=== PATIENT | male | born 1935 | race African-American/Black ===

== ENCOUNTER 2017-06-05 15:21 | Inpatient (IN) | payer OTHER ==
[~2017-06-05] VITALS: Ht 188 cm; Wt 92.7 kg
[~2017-06-05 15:21] MED LIST: CAR3125T PO; DABI75CA3 PO; FUR20T PO
[2017-06-05] MEDS ORDERED: SODIUM CHLORIDE 0.9% 1,000 ML IV ONE (15:42)
[2017-06-05 16:08] LABS: Basophils # (auto) 0 uL; Basophils % (auto) 0.2 % (0.0-2.0); Eosinophils # (auto) 0 uL; Eosinophils % (auto) 0.2 % (0.0-7.0); Hematocrit 41.4 % (41.0-53.0); Hemoglobin 13.8 g/dL (13.5-17.5); Lymphocytes # (auto) 0.3 uL; Lymphocytes % (auto) 7.4 % (10.0-50.0); Mean Corpuscular Hgb Conc. 33.3 g/dL (32.0-36.0); Mean Corpuscular Volume 87.1 fL (80.0-100.0); Monocytes # (auto) 0.3 uL; Monocytes % (auto) 5.3 % (0.0-12.0); Neutrophils # (auto) 4.1 uL; Neutrophils % (auto) 86.9 % (37.0-80.0); Nucleated Red Blood Cells % 0.4 %; Platelet Count (auto) 128 10^3/uL (140-450); Red Blood Cells 4.75 10^6/uL (4.5-5.90); Red Cell Distribution Width 14.1 % (11.8-14.3); White Blood Cell 4.7 10^3/uL (4.4-10.8)
[2017-06-05 16:26] LABS: Potassium 4.2 mmol/L (3.5-5.1)
[2017-06-05 16:29] LABS: BUN/Creatinine Ratio 16.7; Calcium 8.5 mg/dL (8.5-10.1)
[2017-06-05 16:30] LABS: Albumin 3.4 g/dL (3.4-5.0); Bilirubin, Total 1.7 mg/dL (0.2-1.0); Total Protein 7.9 g/dL (6.4-8.2)
[2017-06-05] MEDS ORDERED: ACETAMINOPHEN 500 MG TAB PO PRN (19:00)
[2017-06-05] MEDS ORDERED: LACTULOSE 20Gm/30ML SOLN PO PRN (19:00)
[2017-06-05] MEDS ORDERED: NITROGLYCERIN 0.4 MG SL TAB SL PRN (19:00)
[2017-06-05] MEDS ORDERED: MORPHINE SULFATE 4 MG/ML SYR/VIAL IV PRN (19:00)
[2017-06-05] MEDS ORDERED: FUROSEMIDE 20 MG/2 ML VIAL IV ONE (19:15)
[2017-06-05] MEDS ORDERED: PANTOPRAZOLE 40 MG/10 ML VIAL IV ONE (19:15)
[2017-06-05] MEDS: SODIUM CHLORIDE 0.9% 1,000 ML IV SCH (20:00)
[2017-06-05] MEDS: DABIGATRAN 75 MG CAP PO SCH ×2 (21:22→21:30)
[2017-06-05] MEDS ORDERED: CARVEDILOL 3.125 MG TAB PO SCH (22:00)
[2017-06-06] VITALS (7 sets, daily range): BP systolic 124–154; BP diastolic 68–85
[2017-06-06 01:42] LABS: Urine Bacteria NONE SEEN /hpf (None Seen); Urine Blood 1+ /uL (Negative); Urine Hyaline Cast FEW /lpf (0 - 2); Urine Specific Gravity 1.009 (1.001-1.035); Urine WBC 1 /hpf (0 - 3)
[2017-06-06] MEDS: SODIUM CHLORIDE 0.9% 1,000 ML IV SCH (02:59)
[2017-06-06 05:46] LABS: Basophils # (auto) 0 uL; Basophils % (auto) 0.4 % (0.0-2.0); Eosinophils # (auto) 0.1 uL; Eosinophils % (auto) 1.3 % (0.0-7.0); Hematocrit 36.4 % (41.0-53.0); Hemoglobin 12.3 g/dL (13.5-17.5); Lymphocytes # (auto) 0.6 uL; Lymphocytes % (auto) 12.7 % (10.0-50.0); Mean Corpuscular Hemoglobin 29.4 pg (28.0-32.0); Mean Corpuscular Hgb Conc. 33.7 g/dL (32.0-36.0); Mean Corpuscular Volume 87.3 fL (80.0-100.0); Monocytes # (auto) 0.4 uL; Monocytes % (auto) 8.5 % (0.0-12.0); Neutrophils # (auto) 3.6 uL; Neutrophils % (auto) 77.1 % (37.0-80.0); Nucleated Red Blood Cells % 0.1 %; Platelet Count (auto) 110 10^3/uL (140-450); Red Blood Cells 4.17 10^6/uL (4.5-5.90); Red Cell Distribution Width 14.1 % (11.8-14.3); White Blood Cell 4.7 10^3/uL (4.4-10.8)
[2017-06-06] MEDS ORDERED: FUROSEMIDE 20 MG/2 ML VIAL IV SCH (06:00)
[2017-06-06 06:19] LABS: Albumin 2.7 g/dL (3.4-5.0); BUN/Creatinine Ratio 17.7; Bilirubin, Total 1.6 mg/dL (0.2-1.0); Calcium 7.9 mg/dL (8.5-10.1); Total Protein 6.7 g/dL (6.4-8.2)
[2017-06-06] MEDS ORDERED: PANTOPRAZOLE 40 MG/10 ML VIAL IV SCH (10:00)
[2017-06-06] MEDS ORDERED: CARVEDILOL 3.125 MG TAB PO ONE (12:00)
[2017-06-06] MEDS: DABIGATRAN 75 MG CAP PO SCH (20:53)
[2017-06-06] MEDS: CARVEDILOL 3.125 MG TAB PO SCH (20:58)
[2017-06-07 05:13] VITALS: BP 121/63
[2017-06-07 07:02] LABS: BUN/Creatinine Ratio 16.8; Calcium 7.8 mg/dL (8.5-10.1); Potassium 3.7 mmol/L (3.5-5.1)
[2017-06-07 08:00] VITALS: BP 130/71
[2017-06-07 09:00] VITALS: BP 130/48
[2017-06-07] MEDS: DABIGATRAN 75 MG CAP PO SCH ×2 (10:00→21:43)
[2017-06-07] MEDS: CARVEDILOL 3.125 MG TAB PO SCH ×2 (10:25→21:44)
[2017-06-07 12:39] LABS: % Iron Saturation 15.1 % (20-55)
[2017-06-07 13:38] VITALS: BP 132/67
[2017-06-07 17:29] VITALS: BP 134/69
[2017-06-07] MEDS: GABAPENTIN 100 MG CAP PO SCH (21:43)
[2017-06-07 22:00] VITALS: BP 151/80
[2017-06-08 05:00] VITALS: BP 146/71
[2017-06-08] MEDS: GABAPENTIN 100 MG CAP PO SCH ×3 (05:21→21:44)
[2017-06-08 05:38] LABS: Basophils # (auto) 0 uL; Basophils % (auto) 0.2 % (0.0-2.0); Eosinophils # (auto) 0.1 uL; Eosinophils % (auto) 1.8 % (0.0-7.0); Hematocrit 35.9 % (41.0-53.0); Hemoglobin 12.2 g/dL (13.5-17.5); Lymphocytes # (auto) 0.9 uL; Mean Corpuscular Hemoglobin 29.4 pg (28.0-32.0); Mean Corpuscular Hgb Conc. 34.1 g/dL (32.0-36.0); Mean Corpuscular Volume 86.1 fL (80.0-100.0); Monocytes # (auto) 0.5 uL; Neutrophils # (auto) 3.7 uL; Nucleated Red Blood Cells % 0.1 %; Platelet Count (auto) 115 10^3/uL (140-450); Red Blood Cells 4.17 10^6/uL (4.5-5.90); Red Cell Distribution Width 13.7 % (11.8-14.3); White Blood Cell 5.2 10^3/uL (4.4-10.8)
[2017-06-08 06:13] LABS: Albumin 2.6 g/dL (3.4-5.0); BUN/Creatinine Ratio 16.2; Bilirubin, Total 0.8 mg/dL (0.2-1.0); Calcium 7.8 mg/dL (8.5-10.1); Magnesium 2.3 mg/dL (1.6-2.6); Phosphorus 2.5 mg/dL (2.5-4.90); Potassium 3.7 mmol/L (3.5-5.1); Total Protein 6.5 g/dL (6.4-8.2)
[2017-06-08 08:00] VITALS: BP 144/84
[2017-06-08 08:32] VITALS: BP 144/84
[2017-06-08] MEDS ORDERED: MORPHINE SULFATE 10 MG/ML INJ 1ML SDV IV PRN (09:30)
[2017-06-08] MEDS: DABIGATRAN 75 MG CAP PO SCH ×2 (10:50→21:43)
[2017-06-08] MEDS: CARVEDILOL 3.125 MG TAB PO SCH ×2 (10:50→21:44)
[2017-06-08 12:34] VITALS: BP 139/86
[2017-06-08 17:04] VITALS: BP 149/73
[2017-06-08 22:00] VITALS: BP 149/78
[2017-06-09 05:00] VITALS: BP 131/54
[2017-06-09] MEDS: GABAPENTIN 100 MG CAP PO SCH ×2 (05:09→14:00)
[2017-06-09 05:50] LABS: Basophils # (auto) 0 uL; Basophils % (auto) 0.2 % (0.0-2.0); Eosinophils # (auto) 0.1 uL; Eosinophils % (auto) 1.9 % (0.0-7.0); Hematocrit 35.7 % (41.0-53.0); Lymphocytes # (auto) 0.9 uL; Lymphocytes % (auto) 16.3 % (10.0-50.0); Mean Corpuscular Hgb Conc. 33.6 g/dL (32.0-36.0); Mean Corpuscular Volume 86.3 fL (80.0-100.0); Monocytes # (auto) 0.5 uL; Monocytes % (auto) 8.3 % (0.0-12.0); Neutrophils # (auto) 4.1 uL; Neutrophils % (auto) 73.3 % (37.0-80.0); Nucleated Red Blood Cells % 0.1 %; Platelet Count (auto) 127 10^3/uL (140-450); Red Blood Cells 4.14 10^6/uL (4.5-5.90); Red Cell Distribution Width 13.8 % (11.8-14.3); White Blood Cell 5.7 10^3/uL (4.4-10.8)
[2017-06-09 06:17] LABS: Albumin 2.6 g/dL (3.4-5.0); Calcium 8.1 mg/dL (8.5-10.1); Potassium 3.9 mmol/L (3.5-5.1)
[2017-06-09 06:20] LABS: BUN/Creatinine Ratio 15.3; Magnesium 2.1 mg/dL (1.6-2.6)
[2017-06-09 06:23] LABS: Bilirubin, Total 0.9 mg/dL (0.2-1.0); Phosphorus 2.6 mg/dL (2.5-4.90); Total Protein 6.4 g/dL (6.4-8.2)
[2017-06-09 08:00] VITALS: BP 138/69
[2017-06-09 08:27] VITALS: BP 138/69
[2017-06-09] MEDS: DABIGATRAN 75 MG CAP PO SCH (10:00)
[2017-06-09] MEDS: CARVEDILOL 3.125 MG TAB PO SCH (10:36)
[2017-06-09 12:30] VITALS: BP 116/67
[2017-06-09 12:52] VITALS: BP 111/67
== END 2017-06-09 16:14 | disposition home or self-care (01) | DRG 682 ==
LOC: EDBD 15:21 → ER 15:27 → TELE 15:28 → TELE-CENTR 22:48
PROVIDERS: ADMIT Family Medicine; ATTEND Internal Medicine
DX: N17.9 Acute kidney failure, unspecified (principal); G93.41 Metabolic encephalopathy; E44.0 Moderate protein-calorie malnutrition; E11.22 Type 2 diabetes mellitus with diabetic chronic kidney disease; D68.59 Other primary thrombophilia; E11.42 Type 2 diabetes mellitus with diabetic polyneuropathy; G93.89 Other specified disorders of brain; I48.91 Unspecified atrial fibrillation; I13.0 Hypertensive heart and chronic kidney disease with heart failure and stage 1 through stage 4 chronic kidney disease, or unspecified chronic kidney disease; I50.32 Chronic diastolic (congestive) heart failure; R55 Syncope and collapse; N18.3 Chronic kidney disease, stage 3 (moderate); D64.9 Anemia, unspecified; E66.9 Obesity, unspecified; Z82.49 Family history of ischemic heart disease and other diseases of the circulatory system; Z83.3 Family history of diabetes mellitus; Z79.899 Other long term (current) drug therapy
CPT/HCPCS: 36415; 70450; 71010; 80048; 80053; 80061; 81001; 82270; 82962; 83540; 83550; 83735; 83880; 84100; 84484; 85025; 87040; 87081; 87086; 87400; 87493; 93005; 94761; 95819; 96361; 96374; 96375; 97163; C9113

== ENCOUNTER 2019-04-09 08:33 | Inpatient (IN) | payer OTHER ==
[~2019-04-09] VITALS: Ht 188 cm; Wt 85.3 kg
[~2019-04-09 08:33] MED LIST changes: -DABI75CA3 PO; +DABI75CA5 PO
[2019-04-09] MEDS ORDERED: SODIUM CHLORIDE 0.9% 500 ML IV ONE (08:49)
[2019-04-09 09:38] LABS: Basophils # (auto) 0 uL; Basophils % (auto) 0.3 % (0.0-2.0); Eosinophils # (auto) 0.1 uL; Eosinophils % (auto) 0.7 % (0.0-7.0); Hematocrit 35.9 % (41.0-53.0); Hemoglobin 11.8 g/dL (13.5-17.5); Lymphocytes # (auto) 0.6 uL; Lymphocytes % (auto) 8.1 % (10.0-50.0); Mean Corpuscular Hemoglobin 29.8 pg (28.0-32.0); Mean Corpuscular Volume 90.3 fL (80.0-100.0); Monocytes # (auto) 0.4 uL; Monocytes % (auto) 5.2 % (0.0-12.0); Neutrophils % (auto) 85.7 % (37.0-80.0); Nucleated Red Blood Cells % 0.1 %; Platelet Count (auto) 189 10^3/uL (140-450); Red Blood Cells 3.97 10^6/uL (4.5-5.90); White Blood Cell 7.1 10^3/uL (4.4-10.8)
[2019-04-09 09:52] LABS: Albumin 2.9 g/dL (3.4-5.0); Calcium 8.2 mg/dL (8.5-10.1); Magnesium 1.9 mg/dL (1.6-2.6); Potassium 4.1 mmol/L (3.5-5.1)
[2019-04-09 09:54] LABS: BUN/Creatinine Ratio 12.5
[2019-04-09 09:59] LABS: Bilirubin, Total 1.6 mg/dL (0.2-1.0); Total Protein 7.1 g/dL (6.4-8.2)
[2019-04-09] MEDS ORDERED: ONDANSETRON HCL 4 MG/2 ML VIAL IV PRN (10:45)
[2019-04-09] MEDS ORDERED: FUROSEMIDE 20 MG/2 ML VIAL IV ONE (10:45)
[2019-04-09] MEDS ORDERED: HYDROcodone-ACET 5/325MG TAB PO PRN (10:45)
[2019-04-09] MEDS ORDERED: NITROGLYCERIN 0.4 MG SL TAB SL PRN (10:45)
[2019-04-09] MEDS ORDERED: MORPHINE SULF INJ 2 MG/ML SYRINGE 1ML IV PRN ×2 (10:45)
[2019-04-09] MEDS ORDERED: ACETAMINOPHEN 500 MG TAB PO PRN (10:45)
[2019-04-09] MEDS ORDERED: ASPirin-EC 81 mg tab PO ONE (11:00)
[2019-04-09] MEDS ORDERED: CARVEDILOL 3.125 MG TAB PO ONE (11:00)
[2019-04-09] MEDS ORDERED: LISINOPRIL 10 MG TAB PO ONE (11:00)
[2019-04-09] MEDS ORDERED: FAMOTIDINE 20 MG TAB PO ONE (11:00)
[2019-04-09 11:18] LABS: Cholesterol 148 mg/dL (< 200); Triglycerides 89 mg/dL (< 150)
[2019-04-09 11:21] LABS: HDL Cholesterol 34 mg/dL (40-59); LDL Cholesterol 102 mg/dL (< 100)
--- NOTE | 2019-04-09 12:15 | NUR ---
PATIENT ARRIVED TO UNIT PATIENT ALERT AND ORIENTED X4 DAUGHTER AT BEDSIDE. PATIENT ORIENTED TO UNIT, STAFF, POC, CALL LIGHT AND VISITING HOURS. PATIENT VERBALIZED UNDERSTANDING. PATIENT DENIES ANY CHEST PAIN, OR SOB AT THIS TIME. BED IN LOWEST LOCKED POSITION CALL LIGHT WITHIN REACH. WILL CONTINUE TO MONITOR
[2019-04-09 12:29] VITALS: BP 132/76
--- NOTE | 2019-04-09 13:09 | NUR ---
CRITICAL IMAGING DETECTED KAVITHA FROM IMAGING CALLED PATIENT HAS POSITIVE DVT SEE REPORT. HOSPITALIST PAGED
--- NOTE | 2019-04-09 14:40 | NUR ---
NAUN CALLED BACK. GAVE TELEPHONE ORDERS. WILL CARRY OUT ORDERS
[2019-04-09 14:54] VITALS: BP 132/76
--- NOTE | 2019-04-09 15:22 | NUR ---
PATIENT BED NOT WORKING PROPERLY TO OBTAIN ACCURATE DAVE.
[2019-04-09 16:30] LABS: INR 1.05 (0.9-1.15)
[2019-04-09 16:53] VITALS: BP 147/78
--- NOTE | 2019-04-09 17:05 | NUR ---
BED FIXED OBTAINED WEIGHT AND PHARMACY NOTIFIED FOR COUMADIN AND LOVENOX DOSE
[2019-04-09] MEDS ORDERED: GABA100C9 PO (19:11)
[2019-04-09] MEDS ORDERED: WARFARIN SODIUM 2.5 MG TAB PO ONE (19:15)
--- NOTE | 2019-04-09 19:27 | NUR ---
Opening Shift Note Assumed care of patient, awake and alert x4. No S/S of distress/SOB or pain. Instructed on POC and to call for assist PRN. All questions and concerns answered, will continue to monitor for changes Q1hr and PRN.
[2019-04-09 22:00] VITALS: BP 148/82
[2019-04-09] MEDS ORDERED: ENOXAPARIN SOD 80 MG/0.8ML SYRINGE SC SCH (22:00)
[2019-04-09] MEDS: ATORVASTATIN 20 MG TAB PO SCH (22:38)
[2019-04-09] MEDS: CARVEDILOL 3.125 MG TAB PO SCH (22:38)
[2019-04-09] MEDS: ENOXAPARIN SOD 80 MG/0.8ML SYRINGE SC SCH (22:39)
[2019-04-10] VITALS (7 sets, daily range): BP systolic 138–151; BP diastolic 70–84
[2019-04-10 06:47] LABS: Basophils # (auto) 0 uL; Basophils % (auto) 0.5 % (0.0-2.0); Eosinophils # (auto) 0.1 uL; Eosinophils % (auto) 1.9 % (0.0-7.0); Hematocrit 30.6 % (41.0-53.0); Hemoglobin 10.2 g/dL (13.5-17.5); Lymphocytes # (auto) 0.7 uL; Lymphocytes % (auto) 16.5 % (10.0-50.0); Mean Corpuscular Hemoglobin 29.6 pg (28.0-32.0); Mean Corpuscular Hgb Conc. 33.4 g/dL (32.0-36.0); Mean Corpuscular Volume 88.5 fL (80.0-100.0); Monocytes # (auto) 0.3 uL; Monocytes % (auto) 7.5 % (0.0-12.0); Neutrophils # (auto) 3.3 uL; Neutrophils % (auto) 73.6 % (37.0-80.0); Nucleated Red Blood Cells % 0.2 %; Platelet Count (auto) 159 10^3/uL (140-450); Red Blood Cells 3.46 10^6/uL (4.5-5.90); Red Cell Distribution Width 13.8 % (11.8-14.3); White Blood Cell 4.4 10^3/uL (4.4-10.8)
[2019-04-10 07:03] LABS: INR 1.08 (0.9-1.15); Partial Thromboplastin Time 38.2 sec (23.64-32.05)
[2019-04-10 07:08] LABS: BUN/Creatinine Ratio 13.7; Calcium 7.9 mg/dL (8.5-10.1); Phosphorus 3.4 mg/dL (2.5-4.90); Potassium 3.8 mmol/L (3.5-5.1)
--- NOTE | 2019-04-10 07:30 | NUR ---
Opening Shift Note Assumed care of patient, awake and alert. No S/S of distress/SOB or pain. Instructed on POC and to call for assist PRN, will continue to monitor for changes Q1hr and PRN. Bed locked in lowest position with two side rails up and call light in reach.
--- NOTE | 2019-04-10 09:30 | NUR ---
LEFT LEG DRESSING CHANGED. PATIENT TOLERATED WELL..
[2019-04-10] MEDS: ENOXAPARIN SOD 80 MG/0.8ML SYRINGE SC SCH ×2 (09:37→22:00)
[2019-04-10] MEDS: LISINOPRIL 10 MG TAB PO SCH (09:38)
[2019-04-10] MEDS: FAMOTIDINE 20 MG TAB PO SCH (09:38)
[2019-04-10] MEDS: ASPirin-EC 81 mg tab PO SCH (09:38)
[2019-04-10] MEDS: CARVEDILOL 3.125 MG TAB PO SCH ×2 (09:39→22:00)
--- NOTE | 2019-04-10 12:28 | NUR ---
DR ZOE ROMO. PATIENT TO SPEAK WITH DANIEL RICE REGARDING FINDING A PRIMARY CARE PHYSICIAN.
--- NOTE | 2019-04-10 14:50 | NUR ---
WOUND CARE NOTE: Wound care consult received from nursing. Patient is a 84yo male admitted for acute diastolic heart failure. Patient with with history of hypertension, diabetes, peripheral neuropathy, afib, and chronic kidney disease. Patient is alert and denies pain. Last Brcue score is 14. Reviewed photos and discussed with bedside RNTori. Patient with open draining blisters to left leg. Foam dressing in place in minimal serous drainage. Patient also noted to have MASD to sacrum, scrotum and enrique area. RECOMMENDATIONS: Dietary Consult; Turn q2hrs; Nursing to cleanse open blisters with NS/wound cleanser, pat dry, cover with OPTIFOAM GENTLE, change every other day and PRN; Nursing to cleanse enrique area with mild soap and water, pat dry, apply ZGUARD BID/PRN soiling, may cover sacrum with sacral foam to prevent friction/shear injury; wound care team to follow. Addendum: 04/10/19 at 1745 by YAZMIN OROSCO RN Amended: Links added.
[2019-04-10] MEDS ORDERED: WARFARIN SODIUM 2.5 MG TAB PO ONE (17:00)
[2019-04-10] MEDS ORDERED: ERGOCALCIFEROL 50,000 UNIT(1.25MG) CAP PO SCH (17:15)
--- NOTE | 2019-04-10 19:30 | NUR ---
Opening Shift Note Received report from Tori SHAIKH. Assumed care of patient, awake and alert. No S/S of distress/SOB or pain. Instructed on POC and to call for assist PRN. Fall precaution measures in place, will continue to monitor for changes Q1hr and PRN.
[2019-04-10] MEDS: ATORVASTATIN 20 MG TAB PO SCH (21:59)
--- NOTE | 2019-04-11 05:00 | NUR ---
Wound care done. Applied Optifoam gentle dressing to L lateral leg, sacrum and R hip area.
[2019-04-11 05:30] LABS: Basophils # (auto) 0 uL; Basophils % (auto) 0.3 % (0.0-2.0); Eosinophils # (auto) 0.1 uL; Hematocrit 29.4 % (41.0-53.0); Hemoglobin 9.9 g/dL (13.5-17.5); Lymphocytes # (auto) 0.7 uL; Lymphocytes % (auto) 17.5 % (10.0-50.0); Mean Corpuscular Hemoglobin 29.8 pg (28.0-32.0); Mean Corpuscular Hgb Conc. 33.7 g/dL (32.0-36.0); Mean Corpuscular Volume 88.5 fL (80.0-100.0); Monocytes # (auto) 0.3 uL; Monocytes % (auto) 7.1 % (0.0-12.0); Neutrophils # (auto) 2.9 uL; Neutrophils % (auto) 73.1 % (37.0-80.0); Nucleated Red Blood Cells % 0.1 %; Platelet Count (auto) 149 10^3/uL (140-450); Red Blood Cells 3.32 10^6/uL (4.5-5.90); Red Cell Distribution Width 13.5 % (11.8-14.3); White Blood Cell 3.9 10^3/uL (4.4-10.8)
[2019-04-11 05:43] LABS: INR 1.32 (0.9-1.15); Partial Thromboplastin Time 44.5 sec (23.64-32.05)
[2019-04-11 05:49] VITALS: BP 159/82
[2019-04-11 05:50] LABS: BUN/Creatinine Ratio 12.6; Calcium 7.8 mg/dL (8.5-10.1); Potassium 3.8 mmol/L (3.5-5.1)
[2019-04-11] MEDS: hydrALAZINE HCL 20 MG/ML VL IV PRN ×2 (06:05→18:01)
[2019-04-11 06:11] LABS: Phosphorus 2.8 mg/dL (2.5-4.90); Uric Acid 6.6 mg/dL (3.5-7.2)
--- NOTE | 2019-04-11 06:56 | NUR ---
Drained 700 cc from NGT. Patient stable the whole night. Endorsed care to Crystal SHAIKH. Addendum: 04/11/19 at 0658 by Gisell Gonzalez RN Wrong entry.
--- NOTE | 2019-04-11 07:50 | NUR ---
Patient in bed, awake, oriented x4, slightly hard of hearing, wounds noted on bilateral extremities, right hip, sacral area on Opti foam. Patient on bedrest. Bed alarm on. Addendum: 04/11/19 at 1520 by Dee Meléndez RN penile area
--- NOTE | 2019-04-11 08:00 | NUR ---
Patient is incontinent.
[2019-04-11 09:17] VITALS: BP 139/68
--- NOTE | 2019-04-11 10:30 | NUR ---
Kenneth Russell came over. ordered Urology Consult for kidney sclerosis.
--- NOTE | 2019-04-11 11:10 | NUR ---
Photos taken of the penile area, right hip, bilateral lower extremities. Wound care forms placed on the Wound care tray.
--- NOTE | 2019-04-11 11:15 | NUR ---
Daughter at bedside.
[2019-04-11] MEDS: FAMOTIDINE 20 MG TAB PO SCH (11:21)
[2019-04-11] MEDS: ENOXAPARIN SOD 80 MG/0.8ML SYRINGE SC SCH ×2 (11:21→22:16)
[2019-04-11] MEDS: CARVEDILOL 3.125 MG TAB PO SCH ×2 (11:22→22:15)
[2019-04-11] MEDS: ASPirin-EC 81 mg tab PO SCH (11:22)
[2019-04-11] MEDS: LISINOPRIL 10 MG TAB PO SCH (11:22)
[2019-04-11 13:00] VITALS: BP 137/78
--- NOTE | 2019-04-11 15:24 | NUR ---
Specimen bottle at bedside.
--- NOTE | 2019-04-11 15:58 | NUR ---
Patient asleep at this time. No acute distress noted.
[2019-04-11] MEDS ORDERED: ERGOCALCIFEROL 50,000 UNIT(1.25MG) CAP PO SCH (16:30)
--- NOTE | 2019-04-11 16:55 | NUR ---
Woke up the patient. No acute distress noted.
[2019-04-11 17:00] VITALS: BP 178/106
[2019-04-11] MEDS ORDERED: WARFARIN SODIUM 2.5 MG TAB PO ONE (17:00)
--- NOTE | 2019-04-11 17:10 | NUR ---
Urology Consult called in by Jesus Delacruz.
--- NOTE | 2019-04-11 18:01 | NUR ---
BP = 178/106, Heart rate = 89. Hydralazine Inj 10 mg given for SBP>150.
--- NOTE | 2019-04-11 19:23 | NUR ---
Opening Shift Note Assumed care of patient, awake and alert, oriented x 4, follows direction. On room air with even and unlabored respirations. No S/S of distress or SOB. Patient is able to turn independently in bed. Sacral preventative optifoam in place, left hip and left leg wounds noted. Penile area rashes/tears noted. Will monitor skin integrity and incontinence. Bed low locked position with side rails up x 2 and call light within reach, bed alarm on. Instructed on POC and to call for assist PRN, will continue to monitor for changes Q1hr and PRN.
[2019-04-11 20:00] VITALS: BP 152/78
--- NOTE | 2019-04-11 20:00 | NUR ---
DINNER TRAY NOTED TO BE UNTOUCHED ENCOURAGED PATIENT TO ATTEMPT EATING AND ASSISTANCE OFFERED PATIENT STATES "YOU CAN LEAVE THE TRAY, ILL TRY TO EAT LATER" WILL TRY LATER
--- NOTE | 2019-04-11 21:15 | NUR ---
INCONTINENCE PATIENT INCONTINENT OF URINE AND BOWEL. PATIENT CLEANED WITH MILD SOAP AND WATER, ZGUARD CREAM APPLIED. FULL LINEN CHANGE COMPLETED. PATIENT REPOSITIONED FOR COMFORT. WILL CONTINUE TO MONITOR.
[2019-04-11 22:00] VITALS: BP 152/78
--- NOTE | 2019-04-11 22:00 | NUR ---
0% DINNER CONSUMED PATIENT STATES, "IM JUST NOT HUNGRY" PATIENT ADVISED TO CALL IF CHANGE OF MIND, AND NOURISHMENT WOULD BE PROVIDED AT ANY TIME. PATIENT VERBALIZES UNDERSTANDING
[2019-04-11] MEDS: ATORVASTATIN 20 MG TAB PO SCH (22:16)
--- NOTE | 2019-04-12 00:52 | NUR ---
INCONTINENCE PATIENT INCONTINENT OF URINE AND BOWEL. PATIENT CLEANED WITH MILD SOAP AND WATER, ZGUARD CREAM APPLIED. PATIENT REPOSITIONED FOR COMFORT. WILL CONTINUE TO MONITOR.
[2019-04-12 04:52] VITALS: BP 156/75
[2019-04-12] MEDS: hydrALAZINE HCL 20 MG/ML VL IV PRN (04:59)
[2019-04-12 06:02] LABS: Basophils # (auto) 0 uL; Basophils % (auto) 0.5 % (0.0-2.0); Eosinophils # (auto) 0.1 uL; Eosinophils % (auto) 2.1 % (0.0-7.0); Hematocrit 30.5 % (41.0-53.0); Hemoglobin 10.3 g/dL (13.5-17.5); Lymphocytes # (auto) 0.6 uL; Mean Corpuscular Hemoglobin 29.9 pg (28.0-32.0); Mean Corpuscular Hgb Conc. 33.9 g/dL (32.0-36.0); Mean Corpuscular Volume 88.1 fL (80.0-100.0); Monocytes # (auto) 0.3 uL; Monocytes % (auto) 7.5 % (0.0-12.0); Neutrophils # (auto) 2.8 uL; Neutrophils % (auto) 73.9 % (37.0-80.0); Platelet Count (auto) 156 10^3/uL (140-450); Red Blood Cells 3.46 10^6/uL (4.5-5.90); White Blood Cell 3.8 10^3/uL (4.4-10.8)
[2019-04-12 06:14] LABS: INR 2.39 (0.9-1.15)
[2019-04-12 06:22] LABS: Calcium 7.8 mg/dL (8.5-10.1)
--- NOTE | 2019-04-12 08:10 | NUR ---
ASSIST WITH BREAKFAST TRAY, AM ASSESSMENT. FLOAT HEALS WITH PILLOW. IN HIGH FOWLERS. LUNG SOUNDS CLEAR. DENIES PAIN. CALL LIGHT IN PLACE. LEGS COVERED FOR WARMTH. 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
[2019-04-12 09:00] VITALS: BP 162/89
[2019-04-12] MEDS ORDERED: FUROSEMIDE 40 MG/4 ML VIAL IV ONE (11:00)
[2019-04-12] MEDS: ASPirin-EC 81 mg tab PO SCH (11:30)
[2019-04-12] MEDS: CARVEDILOL 3.125 MG TAB PO SCH ×3 (11:30→22:49)
[2019-04-12] MEDS: FAMOTIDINE 20 MG TAB PO SCH (12:47)
[2019-04-12] MEDS: LISINOPRIL 10 MG TAB PO SCH (12:48)
[2019-04-12 13:00] VITALS: BP 145/89
--- NOTE | 2019-04-12 14:17 | NUR ---
NUTRITION CONSULT/ASSESSMENT NOTES Please refer to link notes of nutrition screen form filed under the intervention section of the plan of care for further details. Est. Needs: 1900 kcal to 2350 kcal (20-25 kcal/kgBW), 75 gms to 94 gms pro (0.8-1.0 gms/kgBW). Will continue to monitor pertinent labs and reassess nutrient need prn Thank you for this consult. Addendum: 04/12/19 at [address] Amended: Links added.
[2019-04-12 17:18] VITALS: BP 158/84
--- NOTE | 2019-04-12 18:17 | NUR ---
CONTINUES TO TAKE FREQUENT OUTSIDE VISITS TO SMOKE. COMES BACK PROMPTLY NOTIFIES STAFF BEFORE LEAVING AND WHEN RETURNING. Addendum: 04/12/19 at 1821 by Reg 2 RN CHART ON WRONG PT
--- NOTE | 2019-04-12 19:15 | NUR ---
Opening Shift Note Assumed care of patient, awake and alert. No S/S of distress/SOB or pain. Instructed on POC and to call for assist PRN, will continue to monitor for changes Q1hr and PRN.
[2019-04-12 22:00] VITALS: BP 136/75
[2019-04-12] MEDS: MUPIROCIN 2% OINT 15gm or 22gm EACHNOSTRI SCH (22:49)
[2019-04-12] MEDS: ATORVASTATIN 20 MG TAB PO SCH (22:50)
[2019-04-13 04:55] VITALS: BP 132/65
--- NOTE | 2019-04-13 07:48 | NUR ---
Opening Shift Note Assumed care of patient, awake and alert. No S/S of distress/SOB or pain. Call light placed within reach and patient was instructed on POC and to call for assist PRN, will continue to monitor for changes Q1hr and PRN.
[2019-04-13 08:03] LABS: INR 2.91 (0.9-1.15); Partial Thromboplastin Time 44.4 sec (23.64-32.05)
--- NOTE | 2019-04-13 08:13 | NUR ---
Assessment Pt is an 84 yr old alert and oriented male. Pt lives with daughter, Margi, who is his caregiver, POA, and emergency contact. Prior to admit, pt was ambulatory and received assistance with bathing but otherwise independent with other ADL's. Pt's daughter helps to cook, clean and transport patient. Pt admitted due to chest pain. Pt receives income. Pt stated that he is extra weak right now and has a hard time getting up and walking much. Pt could benefit from evaluation for PT. Pt is planning to d/c home upon d/c. Pt's daughter Margi can transport the pt upon d/c. Addendum: 04/13/19 at 0819 by AMERICA HUYNH Amended: Links added.
[2019-04-13 09:01] LABS: Basophils # (auto) 0 uL; Basophils % (auto) 0.7 % (0.0-2.0); Eosinophils # (auto) 0.1 uL; Eosinophils % (auto) 2.8 % (0.0-7.0); Hematocrit 32.4 % (41.0-53.0); Hemoglobin 10.7 g/dL (13.5-17.5); Lymphocytes # (auto) 0.7 uL; Lymphocytes % (auto) 14.4 % (10.0-50.0); Mean Corpuscular Hemoglobin 29.4 pg (28.0-32.0); Mean Corpuscular Volume 89.1 fL (80.0-100.0); Monocytes # (auto) 0.4 uL; Monocytes % (auto) 9.1 % (0.0-12.0); Neutrophils # (auto) 3.5 uL; Nucleated Red Blood Cells % 0.1 %; Platelet Count (auto) 171 10^3/uL (140-450); Red Blood Cells 3.63 10^6/uL (4.5-5.90); Red Cell Distribution Width 13.9 % (11.8-14.3); White Blood Cell 4.8 10^3/uL (4.4-10.8)
[2019-04-13 09:09] VITALS: BP 155/74
[2019-04-13] MEDS: ASPirin-EC 81 mg tab PO SCH (09:31)
[2019-04-13] MEDS: LISINOPRIL 10 MG TAB PO SCH (09:32)
[2019-04-13] MEDS: CARVEDILOL 3.125 MG TAB PO SCH ×2 (09:32→22:23)
[2019-04-13] MEDS: FAMOTIDINE 20 MG TAB PO SCH (09:32)
[2019-04-13] MEDS: MUPIROCIN 2% OINT 15gm or 22gm EACHNOSTRI SCH ×2 (09:33→22:23)
[2019-04-13] MEDS ORDERED: phytonadione 5 MG in SODIUM CHL 0.9% 50 ML IV ONE (10:15)
[2019-04-13 13:00] VITALS: BP 137/62
[2019-04-13 16:47] VITALS: BP 164/80
[2019-04-13] MEDS ORDERED: WARFARIN SODIUM 1 MG TAB PO ONE (17:00)
[2019-04-13] MEDS ORDERED: SODIUM CHLORIDE 0.9% 1,000 ML IV ONE (19:00)
--- NOTE | 2019-04-13 19:45 | NUR ---
Margi, patient's daughter, is at bedside. All questions and concerns have been addressed.
[2019-04-13 22:10] VITALS: BP 140/66
[2019-04-13] MEDS: ATORVASTATIN 20 MG TAB PO SCH (22:23)
[2019-04-14] MEDS: hydrALAZINE HCL 20 MG/ML VL IV PRN (04:36)
[2019-04-14 05:08] VITALS: BP 159/75
[2019-04-14 06:38] LABS: Basophils # (auto) 0 uL; Basophils % (auto) 0.2 % (0.0-2.0); Eosinophils # (auto) 0.1 uL; Eosinophils % (auto) 2.1 % (0.0-7.0); Hematocrit 31.5 % (41.0-53.0); Hemoglobin 10.5 g/dL (13.5-17.5); Lymphocytes # (auto) 0.6 uL; Lymphocytes % (auto) 13.1 % (10.0-50.0); Mean Corpuscular Hemoglobin 29.6 pg (28.0-32.0); Mean Corpuscular Hgb Conc. 33.4 g/dL (32.0-36.0); Mean Corpuscular Volume 88.5 fL (80.0-100.0); Monocytes # (auto) 0.4 uL; Monocytes % (auto) 8.1 % (0.0-12.0); Neutrophils # (auto) 3.7 uL; Neutrophils % (auto) 76.5 % (37.0-80.0); Nucleated Red Blood Cells % 0.1 %; Platelet Count (auto) 173 10^3/uL (140-450); Red Blood Cells 3.56 10^6/uL (4.5-5.90); Red Cell Distribution Width 13.7 % (11.8-14.3); White Blood Cell 4.8 10^3/uL (4.4-10.8)
[2019-04-14 06:51] LABS: INR 1.2 (0.9-1.15); Partial Thromboplastin Time 35.6 sec (23.64-32.05)
--- NOTE | 2019-04-14 07:05 | NUR ---
Opening Shift Note Assumed care of patient, awake and alert. No S/S of distress/SOB or pain. Instructed on POC and to call for assist PRN, will continue to monitor for changes Q1hr and PRN. Bed set in lowest locked position with call light within reach.
[2019-04-14 08:02] VITALS: BP 147/78
[2019-04-14 08:56] VITALS: BP 147/78
--- NOTE | 2019-04-14 10:19 | NUR ---
PT at bedside Per physical therapist, chelle Ruffin was able to ambulate 10 feet with moderate assistance. Patient is now resting in a chair and call light is within reach, with no signs and symptoms of pain/SOB/distress will continue to monitor.
[2019-04-14] MEDS: MUPIROCIN 2% OINT 15gm or 22gm EACHNOSTRI SCH ×2 (10:23→22:16)
[2019-04-14] MEDS: ASPirin-EC 81 mg tab PO SCH (10:23)
[2019-04-14] MEDS: FAMOTIDINE 20 MG TAB PO SCH (10:24)
[2019-04-14] MEDS: LISINOPRIL 10 MG TAB PO SCH (10:24)
[2019-04-14] MEDS: CARVEDILOL 3.125 MG TAB PO SCH ×2 (10:25→22:17)
--- NOTE | 2019-04-14 11:19 | NUR ---
Md at bedside Dr. Gooden, updated pt on POC.
--- NOTE | 2019-04-14 11:30 | NUR ---
Patient off unit Taken down to catheter finisher and inspector via gurney, no signs and symptoms of pain/SOB/distress noted. IV flushed, patent and intact.
[2019-04-14] MEDS ORDERED: LIDOCAINE 2%HCL (LOCAL ANESTH.) INJ 20ML MDV ONE (11:31)
[2019-04-14] MEDS ORDERED: IOHEXOL 350 MG/ML 100ML IJ ONE (11:31)
[2019-04-14 13:14] VITALS: BP 103/63
[2019-04-14] MEDS ORDERED: ANGIOMAX 250 MG VIAL IV ONE (14:05)
[2019-04-14] MEDS ORDERED: IODIXANOL 320MG/ML 100ML BTL IV ONE (14:06)
[2019-04-14] MEDS ORDERED: SODIUM CHL 0.9% 50 ML ONE (14:06)
[2019-04-14] MEDS ORDERED: fentaNYL CITRATE 100 MCG/2 ML VL ONE (14:06)
[2019-04-14] MEDS ORDERED: MIDAZOLAM HCL 1MG/1ML-2 ML VIAL ONE (14:06)
--- NOTE | 2019-04-14 14:54 | NUR ---
Pt off unit Patient in bean sprout laborer for procedure. Addendum: 04/14/19 at 1836 by Tiny Gonzalez RN RN Amended: Links added.
--- NOTE | 2019-04-14 15:36 | NUR ---
Patient returned to unit from aquatic life laborer Report received from NEEL rOtiz. JULIANNA NEUMANN brought to bed following Cardiac catheterization, on youth nutritional monitor and portable oxygen. Patient transferred to unit in bed, connected to equipment monitor phototypesetting and oxygen. Catheterization site assessed for any bleeding, redness or swelling. Dressing in place clean, dry and intact. Pedal pulses on affected leg assessed for positive tissue perfusion. Patient instructed on need to keep extremity flat and to notify staff immediately if any pain, burning or wetness to site, and any lower back pain. All questions and concerns addressed, patient verbalized understanding of all education and instruction.
[2019-04-14 17:12] VITALS: BP 105/57
--- NOTE | 2019-04-14 18:56 | NUR ---
Endorsed care to NOC RN.
--- NOTE | 2019-04-14 19:35 | NUR ---
Opening Shift Note Assumed care of patient, awake and alert. No S/S of distress/SOB. The patient denies pain. RAC IV patent, saline locked and properly secured. Bland catheter in place, properly secured and hung to gravity, light pink urine noted, will monitor closely. Instructed on POC and to call for assist PRN, patient verbalizes understanding. Will continue to monitor for changes Q1hr and PRN.
--- NOTE | 2019-04-14 21:00 | NUR ---
PATIENT REPOSITIONED IN BED DON COMFORT. WILL CONTINUE TURNING Q2H AND PRN
[2019-04-14 22:00] VITALS: BP 131/86
[2019-04-14] MEDS: ATORVASTATIN 20 MG TAB PO SCH (22:17)
[2019-04-15 05:00] VITALS: BP 135/86
[2019-04-15 05:30] LABS: Basophils # (auto) 0 uL; Basophils % (auto) 0.5 % (0.0-2.0); Eosinophils # (auto) 0.1 uL; Eosinophils % (auto) 2.5 % (0.0-7.0); Hematocrit 30.2 % (41.0-53.0); Hemoglobin 10.1 g/dL (13.5-17.5); Lymphocytes # (auto) 0.7 uL; Lymphocytes % (auto) 14.5 % (10.0-50.0); Mean Corpuscular Hemoglobin 29.6 pg (28.0-32.0); Mean Corpuscular Hgb Conc. 33.5 g/dL (32.0-36.0); Mean Corpuscular Volume 88.5 fL (80.0-100.0); Monocytes # (auto) 0.4 uL; Monocytes % (auto) 8.3 % (0.0-12.0); Neutrophils # (auto) 3.4 uL; Neutrophils % (auto) 74.2 % (37.0-80.0); Nucleated Red Blood Cells % 0.1 %; Platelet Count (auto) 158 10^3/uL (140-450); Red Blood Cells 3.41 10^6/uL (4.5-5.90); Red Cell Distribution Width 13.6 % (11.8-14.3); White Blood Cell 4.6 10^3/uL (4.4-10.8)
[2019-04-15 05:44] LABS: INR 1.52 (0.9-1.15)
[2019-04-15 05:48] LABS: BUN/Creatinine Ratio 11.4; Calcium 7.8 mg/dL (8.5-10.1)
--- NOTE | 2019-04-15 07:08 | NUR ---
Opening Shift Note Assumed care of patient, asleep. No S/S of distress/SOB or pain. Instructed on POC and to call for assist PRN, will continue to monitor for changes Q1hr and PRN.
[2019-04-15 09:00] VITALS: BP 139/69
[2019-04-15] MEDS: MUPIROCIN 2% OINT 15gm or 22gm EACHNOSTRI SCH (09:29)
[2019-04-15] MEDS: LISINOPRIL 10 MG TAB PO SCH (09:29)
[2019-04-15] MEDS: ASPirin-EC 81 mg tab PO SCH (09:30)
[2019-04-15] MEDS: CARVEDILOL 3.125 MG TAB PO SCH (09:30)
[2019-04-15] MEDS: FAMOTIDINE 20 MG TAB PO SCH (09:30)
--- NOTE | 2019-04-15 10:11 | NUR ---
Dr. Gooden at bedside discussing POC with patient and his daughter.
--- NOTE | 2019-04-15 10:15 | NUR ---
Pt up with physical therapist
[2019-04-15 13:00] VITALS: BP 131/71
--- NOTE | 2019-04-15 15:05 | NUR ---
WOUND PICTURES TAKEN.
--- NOTE | 2019-04-15 15:25 | NUR ---
LANGFORD BAG CHANGED TO LEG BAG.
[2019-04-15 16:19] VITALS: BP 128/75
--- NOTE | 2019-04-15 16:21 | NUR ---
D/C Planning Per consult for home health RN evaluation and Physical therapy evaluation. Contact [facility] Ph:( [phone]) Fax:) faxed medical records with authorization [id number]. Robin Issa from [facility] Pt has been accepted and service to start within 48hrs upon d/c day. Contact Ph:) Fax:) faxed medical records with authorization [id number]. Robin Mariscal from referral has been received and FWW with seat with be deliver to Pt home. Contact [facility] Ph: [phone]) Fax:( [phone]) faxed medical records with authorization numbers. Per Informed RN Gertrude. Addendum: 04/15/19 at 1638 by TAE LAUGHLIN Amended: Links added.
[2019-04-15] MEDS ORDERED: WARFARIN SODIUM 5 MG TAB PO ONE (17:00)
--- NOTE | 2019-04-15 18:01 | NUR ---
ICU patient trans to floor SBAR faxed and confirmed receipt by . JULIANNA NEUMANN transferred to via [facility] on surveillance monitor and portable 02. All patient medications and personal belongings transferred with patient to receiving floor. Patient care transfered to . PLACED ON 2 L N/C NO SOB OR DISTRESS NOTED NOTE:
--- NOTE | 2019-04-15 18:50 | NUR ---
Discharge instructions given as ordered. Encourage to follow up with PMD as instructed. All questions and concerns addressed. Patient verbalized understanding. Medication reconciliation form completed and copy given to patient. IV removed with catheter intact, pressure dressing applied, PATIENT WENT HOME WITH LANGFORD CATHETER PER LEG BAG ATTACHED. Telemetry unit returned to ICU. Patient taken to vehicle via wheelchair with all personal belongings, accompanied by staff and family member. No distress noted at time of departure.
== END 2019-04-15 17:41 | disposition home health service (06) | DRG 252 ==
LOC: ER 08:33 → EDBD 08:33 → TELE 08:34 → TELE-WESTW 12:05
PROVIDERS: ADMIT Nurse Practitioner Acute Care; ATTEND Family Medicine
PROC: 047M3ZZ Dilation of Right Popliteal Artery, Percutaneous Approach (ICD-10-PCS; principal; 2019-04-14)
PROC: 047P3ZZ Dilation of Right Anterior Tibial Artery, Percutaneous Approach (ICD-10-PCS; 2019-04-14)
PROC: 047T3ZZ Dilation of Right Peroneal Artery, Percutaneous Approach (ICD-10-PCS; 2019-04-14)
PROC: 047K3Z1 Dilation of Right Femoral Artery using Drug-Coated Balloon, Percutaneous Approach (ICD-10-PCS; 2019-04-14)
PROC: B41G1ZZ Fluoroscopy of Left Lower Extremity Arteries using Low Osmolar Contrast (ICD-10-PCS; 2019-04-14)
PROC: B41F1ZZ Fluoroscopy of Right Lower Extremity Arteries using Low Osmolar Contrast (ICD-10-PCS; 2019-04-14)
PROC: 047M34Z Dilation of Right Popliteal Artery with Drug-eluting Intraluminal Device, Percutaneous Approach (ICD-10-PCS; 2019-04-14)
DX: I13.0 Hypertensive heart and chronic kidney disease with heart failure and stage 1 through stage 4 chronic kidney disease, or unspecified chronic kidney disease (principal); I50.33 Acute on chronic diastolic (congestive) heart failure; I21.A1 Myocardial infarction type 2; N17.0 Acute kidney failure with tubular necrosis; L97.919 Non-pressure chronic ulcer of unspecified part of right lower leg with unspecified severity; E44.0 Moderate protein-calorie malnutrition; N13.30 Unspecified hydronephrosis; I82.413 Acute embolism and thrombosis of femoral vein, bilateral; E11.51 Type 2 diabetes mellitus with diabetic peripheral angiopathy without gangrene; N18.3 Chronic kidney disease, stage 3 (moderate); E11.22 Type 2 diabetes mellitus with diabetic chronic kidney disease; E11.42 Type 2 diabetes mellitus with diabetic polyneuropathy; N26.9 Renal sclerosis, unspecified; E55.9 Vitamin D deficiency, unspecified; I48.0 Paroxysmal atrial fibrillation; E86.0 Dehydration; D64.9 Anemia, unspecified; E78.00 Pure hypercholesterolemia, unspecified; Z79.84 Long term (current) use of oral hypoglycemic drugs; Z68.24 Body mass index [BMI] 24.0-24.9, adult; Z82.49 Family history of ischemic heart disease and other diseases of the circulatory system; Z79.01 Long term (current) use of anticoagulants; Z83.3 Family history of diabetes mellitus; Z91.14 Patient's other noncompliance with medication regimen
CPT/HCPCS: 36415; 37224; 71045; 71250; 75716; 76775; 78707; 80048; 80053; 80061; 82306; 82962; 83036; 83735; 83880; 83970; 84100; 84484; 84550; 85025; 85610; 85730; 86141; 86850; 86900; 86901; 87081; 93005; 93306; 93926; 93970; 94761; 96360; 97116; 97530; 99152; C1769; G0378; J2250; J3430; Q9967

== ENCOUNTER 2019-04-19 16:16 | Emergency (ER) | payer OTHER ==
[~2019-04-19] VITALS: Ht 188 cm; Wt 83.9 kg
[~2019-04-19 16:16] MED LIST changes: +GABA100C9 PO
[2019-04-19 18:36] LABS: Urine Bacteria NONE SEEN /hpf (None Seen); Urine Blood 1+ /uL (Negative); Urine Hyaline Cast FEW /lpf (0 - 2); Urine Mucus FEW (None Seen); Urine Specific Gravity 1.012 (1.001-1.035); Urine WBC 24 /hpf (0 - 3)
[2019-04-19 18:50] LABS: Basophils # (auto) 0 uL; Basophils % (auto) 0.4 % (0.0-2.0); Eosinophils # (auto) 0.1 uL; Eosinophils % (auto) 0.7 % (0.0-7.0); Hematocrit 38.8 % (41.0-53.0); Hemoglobin 12.7 g/dL (13.5-17.5); Lymphocytes # (auto) 0.7 uL; Lymphocytes % (auto) 7.8 % (10.0-50.0); Mean Corpuscular Hemoglobin 29.5 pg (28.0-32.0); Mean Corpuscular Hgb Conc. 32.8 g/dL (32.0-36.0); Mean Corpuscular Volume 89.8 fL (80.0-100.0); Monocytes # (auto) 0.5 uL; Neutrophils # (auto) 7.1 uL; Neutrophils % (auto) 85.1 % (37.0-80.0); Platelet Count (auto) 214 10^3/uL (140-450); Red Blood Cells 4.32 10^6/uL (4.5-5.90); Red Cell Distribution Width 13.7 % (11.8-14.3); White Blood Cell 8.4 10^3/uL (4.4-10.8)
[2019-04-19 19:06] LABS: Albumin 2.6 g/dL (3.4-5.0); Calcium 8.1 mg/dL (8.5-10.1); Magnesium 2.3 mg/dL (1.6-2.6); Potassium 4.8 mmol/L (3.5-5.1)
[2019-04-19 19:09] LABS: Bilirubin, Total 0.5 mg/dL (0.2-1.0); Total Protein 7.5 g/dL (6.4-8.2)
[2019-04-19 20:25] VITALS: BP 129/78
[2019-04-19 21:25] LABS: Partial Thromboplastin Time 53.6 sec (23.64-32.05)
[2019-04-19 22:54] LABS: INR > 8.0 (0.9-1.15)
== END 2019-04-19 22:38 | disposition home or self-care (01) ==
LOC: ER 16:16 → EDBD 16:16 → ER 22:38
DX: E86.0 Dehydration (principal); I12.9 Hypertensive chronic kidney disease with stage 1 through stage 4 chronic kidney disease, or unspecified chronic kidney disease; E11.22 Type 2 diabetes mellitus with diabetic chronic kidney disease; N18.9 Chronic kidney disease, unspecified; N17.9 Acute kidney failure, unspecified
CPT/HCPCS: 36415; 71045; 80053; 81001; 83605; 83735; 83880; 84443; 84484; 85025; 85610; 85730; 87040; 93005

== ENCOUNTER 2019-05-17 10:47 | Inpatient (IN) | payer OTHER ==
[~2019-05-17] VITALS: Ht 190.5 cm; Wt 77.6 kg
[~2019-05-17 10:47] MED LIST changes: +AMLO5TAB15 PO; +ASPI-325 PO; -CAR3125T PO; -DABI75CA5 PO; -FUR20T PO; -GABA100C9 PO; +HYDR-392 PO
[2019-05-17] MEDS ORDERED: SODIUM CHLORIDE 0.9% 1,000 ML IV ONE (11:01)
[2019-05-17 11:58] LABS: Albumin 2.7 g/dL (3.4-5.0); Anion Gap 9 (5-15); Basophils # (auto) 0 uL; Basophils % (auto) 0.4 % (0.0-2.0); Blood Urea Nitrogen 41 mg/dL (7-18); Calcium 8.6 mg/dL (8.5-10.1); Carbon Dioxide 20 mmol/L (21-32); Chloride 117 mmol/L (98-107); Eosinophils # (auto) 0.1 uL; Eosinophils % (auto) 1.6 % (0.0-7.0); Glucose 152 mg/dL (74-106); Hematocrit 42.4 % (41.0-53.0); Lymphocytes # (auto) 1.1 uL; Lymphocytes % (auto) 16.7 % (10.0-50.0); Mean Corpuscular Hemoglobin 28.9 pg (28.0-32.0); Mean Corpuscular Hgb Conc. 30.6 g/dL (32.0-36.0); Mean Corpuscular Volume 94.5 fL (80.0-100.0); Monocytes # (auto) 0.4 uL; Monocytes % (auto) 6.6 % (0.0-12.0); Neutrophils % (auto) 74.7 % (37.0-80.0); Nucleated Red Blood Cells % 0.1 %; Platelet Count (auto) 170 10^3/uL (140-450); Potassium 5.2 mmol/L (3.5-5.1); Red Blood Cells 4.49 10^6/uL (4.5-5.90); Red Cell Distribution Width 15.4 % (11.8-14.3); Sodium 146 mmol/L (136-145); White Blood Cell 6.8 10^3/uL (4.4-10.8)
[2019-05-17 12:00] LABS: Lactic Acid w/Reflex 3.2 mmol/L (0.4-2.0)
[2019-05-17 12:03] LABS: Alanine Aminotransferase 17 U/L (16-61); Alkaline Phosphatase 91 U/L (45-117); Aspartate Aminotransferase 35 U/L (15-37); BUN/Creatinine Ratio 16.5; Bilirubin, Total 1.1 mg/dL (0.2-1.0); Blood Alcohol < 3.0 mg/dL (0-5); GFR African American 32 mL/min; GFR Non-African American 26 mL/min; Total Protein 7.5 g/dL (6.4-8.2)
[2019-05-17] MEDS ORDERED: SODIUM CHLORIDE 0.9% 1,000 ML IV SCH (13:45)
[2019-05-17] MEDS ORDERED: InsuLIN REG 1unit/0.01ml Soln (100units/ml) IV ONE (13:45)
[2019-05-17] MEDS ORDERED: NITROGLYCERIN 0.4 MG SL TAB SL PRN (13:45)
[2019-05-17] MEDS ORDERED: MORPHINE SULF INJ 2 MG/ML SYRINGE 1ML IV PRN (13:45)
[2019-05-17] MEDS ORDERED: SODIUM BICARBONATE 8.4 % INJ 50ML VIAL IV ONE (13:45)
[2019-05-17] MEDS ORDERED: ALBUTEROL SULF 2.5 MG/0.5ML(0.5%) NEB SOLN NEB ONE (13:45)
[2019-05-17] MEDS ORDERED: CALCIUM GLUC 4.65meq/50ml D5AE 50 ML IV ONE (13:45)
[2019-05-17] MEDS ORDERED: DEXTROSE (50%) 50ML SYRG IV ONE (13:45)
[2019-05-17] MEDS ORDERED: DEXTROSE (50%) 50ML SYRG IV PRN (14:45)
[2019-05-17 16:23] LABS: BUN/Creatinine Ratio 16.2; Calcium 8.2 mg/dL (8.5-10.1); Potassium 5.3 mmol/L (3.5-5.1)
[2019-05-17] MEDS: InsuLIN REG 1unit/0.01ml Soln (100units/ml) SC SCH ×2 (17:00→21:26)
[2019-05-17] MEDS: ACCU-CHEK COMFORT CURVE STRIP VI SCH ×2 (17:04→21:26)
[2019-05-17] MEDS ORDERED: SODIUM CHLORIDE 0.9% 250 ML IV ONE (17:15)
[2019-05-17] MEDS ORDERED: FUROSEMIDE 20 MG/2 ML VIAL IV ONE (17:15)
[2019-05-17 17:30] VITALS: BP 118/74
--- NOTE | 2019-05-17 17:35 | NUR ---
Telemetry admit from ER: JULIANNA NEUMANN admitted to Telemetry unit after SBAR received. Patient oriented to KAVITHA CERDA RN primary RN, unit, room, bed, and unit policies regarding patient care and visiting hours. Patient now on continuous telemetry monitoring, tele box # 11. Patient placed on bedside oxygen AT 2 lpm, patient stated estimated weight. All questions and concerns addressed, patient verbalized understanding.
[2019-05-17 17:44] LABS: Urine Bacteria FEW /hpf (None Seen); Urine Blood 2+ /uL (Negative); Urine Hyaline Cast FEW /lpf (0 - 2); Urine Mucus FEW (None Seen); Urine Specific Gravity 1.013 (1.001-1.035); Urine WBC 18 /hpf (0 - 3)
--- NOTE | 2019-05-17 18:20 | NUR ---
Wound photos taken at this time.
[2019-05-17 18:36] VITALS: BP 137/68
--- NOTE | 2019-05-17 18:49 | NUR ---
Was unable to obtain history from patient. Contacted family member to obtain history.
--- NOTE | 2019-05-17 19:30 | NUR ---
Opening Shift Note Assumed care of patient, awake and alert. No S/S of distress/SOB or pain. Instructed on POC and to call for assist PRN, will continue to monitor for changes Q1hr and PRN. Bland hang below bed and draining to gravity.
[2019-05-17 20:00] VITALS: BP 103/63
--- NOTE | 2019-05-17 20:35 | NUR ---
Closing notes: Patient resting in bed. No S/S of pain, distress or SOB at this time. Patient given IV lasix per order. Unable to hang IV fluids at this time. NOC RN aware. Care endorsed to NOC RN Violeta.
[2019-05-17] MEDS ORDERED: SODIUM ZIRCONIUM CYCL 10 GM PAK PO ONE (20:45)
[2019-05-17 22:00] VITALS: BP 88/59
[2019-05-17 22:10] VITALS: BP 103/94
[2019-05-17] MEDS: SODIUM BICARBONATE 50ML VIAL 50 ML in SOD CHL 0.45% 1,000 ML IV SCH (23:07)
[2019-05-18 05:33] VITALS: BP 102/66
[2019-05-18 05:56] LABS: Basophils # (auto) 0 uL; Basophils % (auto) 0.3 % (0.0-2.0); Eosinophils # (auto) 0.1 uL; Eosinophils % (auto) 1.4 % (0.0-7.0); Hematocrit 38.2 % (41.0-53.0); Hemoglobin 12.7 g/dL (13.5-17.5); Lymphocytes % (auto) 15.9 % (10.0-50.0); Mean Corpuscular Hemoglobin 29.6 pg (28.0-32.0); Mean Corpuscular Hgb Conc. 33.2 g/dL (32.0-36.0); Mean Corpuscular Volume 89.2 fL (80.0-100.0); Monocytes # (auto) 0.5 uL; Monocytes % (auto) 8.8 % (0.0-12.0); Neutrophils # (auto) 4.6 uL; Neutrophils % (auto) 73.6 % (37.0-80.0); Nucleated Red Blood Cells % 0.1 %; Platelet Count (auto) 165 10^3/uL (140-450); Red Blood Cells 4.29 10^6/uL (4.5-5.90); Red Cell Distribution Width 14.3 % (11.8-14.3); White Blood Cell 6.2 10^3/uL (4.4-10.8)
[2019-05-18 06:03] LABS: INR 1.17 (0.9-1.15); Partial Thromboplastin Time 29.7 sec (23.64-32.05)
[2019-05-18 06:10] LABS: Potassium 4.9 mmol/L (3.5-5.1)
[2019-05-18] MEDS: InsuLIN REG 1unit/0.01ml Soln (100units/ml) SC SCH ×4 (06:16→22:00)
[2019-05-18] MEDS: ACCU-CHEK COMFORT CURVE STRIP VI SCH ×4 (06:16→22:27)
[2019-05-18 06:27] LABS: BUN/Creatinine Ratio 17.7; Calcium 8.2 mg/dL (8.5-10.1)
--- NOTE | 2019-05-18 08:00 | NUR ---
OPENING SHIFT NOTE ASSUMED CARE OF PT. PT IS AWAKE AND ALERT. NO SOB OR SIGNS OF DISTRESS NOTED. INSTRUCTED ON POC AND TO CALL FOR HELP PRN. BED IN LOWEST POSITION WITH SIDE RAILS UP X2. WILL CONTINUE TO MONITOR.
[2019-05-18 09:00] VITALS: BP 85/53
[2019-05-18] MEDS ORDERED: amLODIPine BESYLATE 5 MG TAB PO SCH (10:00)
[2019-05-18] MEDS: SODIUM BICARBONATE 50ML VIAL 50 ML in SOD CHL 0.45% 1,000 ML IV SCH ×2 (10:55→21:15)
[2019-05-18] MEDS: ASPirin-EC 81 mg tab PO SCH (10:56)
--- NOTE | 2019-05-18 10:56 | NUR ---
Nutrition consult/assessment Notes please see attached link for complete assessment Est. Needs BW 80 [id number] kcal (25-30 kcal/kgBW), 80-88 gms pro (1.0-1.1 gms/kgBW r/t wounds elev RFT). Will continue to monitor pertinent labs and reassess nutrient need prn Addendum: 05/18/19 at [address] Amended: Links added.
--- NOTE | 2019-05-18 11:00 | NUR ---
CLEAN CATCH URINE CULTURE COLLECTED. SENT TO LAB.
--- NOTE | 2019-05-18 11:00 | NUR ---
WOUND CARE NOTE: IN TO SEE PATIENT AT THIS TIME PER WOUND CARE CONSULT REQUEST. PATIENT WAS NOTED UPON ADMIT TO HAVE MULTIPLE WOUNDS. WOUND PHOTOS TAKEN, WOUND CONSULT ORDERED. PATIENT ADMITTED TO [facility] WITH DIAGNOSIS OF METABOLIC ENCEPHALOPATHY. CURRENT PARTH SCORE IS 12. PATIENT IS BEDBOUND. PATIENT CAN ASSIST WITH HIS TURNING/REPOSITIONING. SPECIALTY AIR MATTRESS HAS BEEN ORDERED. PATIENT TO BE PLACED, PENDING DELIVERY BY [facility]. PATIENT HAS MULTIPLE PRESSURE ULCERS, INCLUDING 3 UNSTAGEABLE PRESSURE ULCERS TO THE RIGHT HIP, ONE STAGE 3 TO THE RIGHT ISCHIUM, SMALL STAGE 3 TO COCCYX, ONE SMALL STAGE 3 TO THE RIGHT BUTTOCK, DTI TO THE RIGHT ANTERIOR THIGH, DTI/UNSTG TO THE LEFT # 1 ,2 TOES/FOOT. HEMOSIDERIN STAIN TO BLE, WITH MULTIPLE PINK COLLAGEN SCARS TO BLE. NEW WOUND PHOTOS TAKEN AT THIS TIME OF ALL WOUNDS FOR REFERENCE. APPLIED THERAHONEY GAUZE AND OPTIFOAM GENTLE DRESSINGS TO PRESSURE ULCERS ON RIGHT HIP, ISCHIUM, COCCYX, ZGUARD TO RIGHT BUTTOCK, HYDRAGUARD BARRIER CREAM APPLIED TO XEROTIC SKIN ON BLE/FEET, PATIENT REPOSITIONED ONTO LEFT SIDE, REDISTRIBUTING PRESSURE POINTS USING PILLOWS/WEDGES. SKIN/WOUND CARE PLAN IMPLEMENTED. RECOMMEND: FREQUENT TURN SCHEDULE Q 2 HOURS, PRN CONDITION PERMITS, WITH PRESSURE REDISTRIBUTION USING PILLOWS/WEDGES, SPECIALTY AIR MATTRESS, DAILY/PRN DRESSING CHANGES TO WOUNDS ON RIGHT HIP, ISHCIUM, COCCYX WOUNDS, BID/PRN APPLICATION WITH ZGUARD TO RIGHT BUTTOCK WOUND, PERINEUM SKIN, BID APPLICATION OF HYDRAGUARD TO DRY SKIN ON BLE/FEET, DIETARY CONSULT, SKIN/WOUND CARE PLAN, CONTINUED MONITORING BY WOUND CARE TEAM. Addendum: 05/18/19 at 1741 by Vivian Becerra RN Amended: Links added.
[2019-05-18 12:46] LABS: Free T4 (Free Thyroxine) 1.19 ng/dL (0.89-1.76)
[2019-05-18 12:47] LABS: Folate (Folic Acid) 7.42 ng/mL (5.38-24)
[2019-05-18 13:00] VITALS: BP 91/63
--- NOTE | 2019-05-18 13:00 | NUR ---
AIR MATTRESS DELIVERED PER WOUND CARE NURSE INSTRUCTIONS.
[2019-05-18] MEDS ORDERED: cefTRIAXone 1GM/50ML D5W 50 ML IV ONE (13:45)
--- NOTE | 2019-05-18 14:30 | NUR ---
PT UNABLE TO DO MRI DUE TO CONTRACTIONS. DR KAPLAN IS AWARE.
[2019-05-18 18:22] VITALS: BP 90/52
--- NOTE | 2019-05-18 19:30 | NUR ---
Opening Shift Note Assumed care of patient, awake and alert. No S/S of distress/SOB or pain. Instructed on POC and to call for assist PRN, will continue to monitor for changes Q1hr and PRN. Patient had a small/smear BM. Bland draining to gravity.
[2019-05-18 20:00] VITALS: BP 103/60
[2019-05-18 21:00] VITALS: BP 103/66
--- NOTE | 2019-05-18 22:00 | NUR ---
IV removal RH IV DC'd with clean sterile technique, catheter fully intact. Pressure dressing applied to site. Patient tolerated well.
--- NOTE | 2019-05-18 22:05 | NUR ---
IV insertion IV access obtained, via clean sterile technique by inserting 22 gauge catheter at LAC after 2 attempts. IV secured properly. No trauma to site. Patient tolerated well.
[2019-05-19] VITALS (8 sets, daily range): BP systolic 86–142; BP diastolic 43–73
--- NOTE | 2019-05-19 05:00 | NUR ---
Wound dressing change. Patient tolerated well.
[2019-05-19 05:06] LABS: RPR Non Reactive (Non Reactive)
[2019-05-19] MEDS: ACCU-CHEK COMFORT CURVE STRIP VI SCH ×4 (06:29→22:02)
[2019-05-19] MEDS: InsuLIN REG 1unit/0.01ml Soln (100units/ml) SC SCH ×4 (06:29→22:02)
[2019-05-19 07:51] LABS: Basophils # (auto) 0 uL; Basophils % (auto) 0.5 % (0.0-2.0); Eosinophils # (auto) 0.1 uL; Eosinophils % (auto) 2.1 % (0.0-7.0); Hematocrit 37.9 % (41.0-53.0); Hemoglobin 12.2 g/dL (13.5-17.5); Lymphocytes # (auto) 1.1 uL; Lymphocytes % (auto) 18.1 % (10.0-50.0); Mean Corpuscular Hgb Conc. 32.2 g/dL (32.0-36.0); Monocytes # (auto) 0.4 uL; Monocytes % (auto) 7.1 % (0.0-12.0); Neutrophils # (auto) 4.2 uL; Neutrophils % (auto) 72.2 % (37.0-80.0); Nucleated Red Blood Cells % 0.1 %; Platelet Count (auto) 135 10^3/uL (140-450); Red Blood Cells 4.21 10^6/uL (4.5-5.90); Red Cell Distribution Width 14.3 % (11.8-14.3); White Blood Cell 5.8 10^3/uL (4.4-10.8)
--- NOTE | 2019-05-19 08:00 | NUR ---
ASSESSMENT NOTE PATIENT IS ALERT ORIENTED TO SELF, SITUATION, PLACE, CONFUSED ON TIMES, PT HAS A PLEASANT PERSONALITY, ABLE TO FEED HIM SELF, AND VERBALIS HIS DEMANDS, RESTING ON AIR MATTRESS, REPOSITION EVERY 2 HOURS AT ALL TIMES, HEAD OF BED ELEVATED FOR ASPIRATION PRECAUTIONS, LANGFORD CATHETER TO GRAVITY, OPTIFOAM NOTED AT THE RT HIP AREA AND COCCYX AREA, CLEAN AND DRY, ON CONTACT ISOLATION, MONITOR EVERY SHIFT, NEXT TO NURSING STAION, CALL LIGHT WITHIN REACH
[2019-05-19 08:08] LABS: Calcium 7.8 mg/dL (8.5-10.1); Potassium 4.3 mmol/L (3.5-5.1)
[2019-05-19 08:11] LABS: BUN/Creatinine Ratio 17.2
[2019-05-19] MEDS ORDERED: cefTRIAXone 1GM/50ML D5W 50 ML IV SCH (09:00)
[2019-05-19] MEDS: ASPirin-EC 81 mg tab PO SCH (09:11)
[2019-05-19] MEDS: SODIUM BICARBONATE 50ML VIAL 50 ML in SOD CHL 0.45% 1,000 ML IV SCH (09:20)
[2019-05-19] MEDS ORDERED: ENOXAPARIN SOD 30 MG/0.3 ML SYRINGE SC SCH (10:00)
--- NOTE | 2019-05-19 10:15 | NUR ---
FAMILY PATIENT'S DAUGHTER AT BED SIDE, WANDERING WHEN THE PHYSICIAN WILL BE HERE, MADE AWARE THAT THEY ARE DOING THEIR ROUND ROOM BY ROOM
--- NOTE | 2019-05-19 11:30 | NUR ---
DR KAPLAN AT BED SIDE DISCUSSING THE DISCHARGE PLANING TO HOSPICE, PT VERBALIS UNDERSTANDING, AGREE WITH THE PLAN, KRISTIN PATIENT'S DAUGHTER AT BED SIDE
--- NOTE | 2019-05-19 15:00 | NUR ---
A COMPLETE BED BATH AND LINEN CHANGE DONE BY MARIA A AGUILAR
--- NOTE | 2019-05-19 15:09 | NUR ---
assessment Patient is a 84 year old male who is alert and oriented. Prior to admission patient lived home with his daughter Margi Dyer and functioned with assistance. Per patient he will return home to his prior living arrangements post discharge and family will transport him home. Patient has a fww for home use. Patients PCP is Dr Salgado. Patient is on service with [facility]. Patient now has a ss consult for hospice. Per patient and Margi Dyer POA they have been talking with [facility] that Dr Salgado recommended. Per Margi she will sign consents in the morning at 9am. Margi informed me she will take patient home and she will be here in 1 hour. I informed patient he has a right to speak to a professor of social work regarding all care. I informed patient he has a right to participate in any and all discharge planning. Patient has a POA and advanced directive. Patient verbalized understanding and agreed to discharge plan. Addendum: 05/19/19 at 1512 by Blanca ALLRED Amended: Links added.
--- NOTE | 2019-05-19 15:29 | NUR ---
Discharge planning per consult, patient has orders for a hospice eval. Per Dr. Salgado and SW2 Blanca Coleman, patient's family chose [facility] as they were on services with [facility]. Referral faxed to [facility] [phone] Addendum: 05/19/19 at 1709 by CASEY TRAN [facility] has arranged transportation per Petra and advised that she did order the home bed for the patient and scheduled garbage pick up worker time is between 7:30-8:30pm Nurse Giana was advised.
--- NOTE | 2019-05-19 15:30 | NUR ---
JOHN FROM [facility] IS HERE, INFORM ME THAT THEY ACCEPTED PT, AND THE DAUGHTER WILL GOING TO PICK HIM UP IN HER CAR TONIGHT, ARIANNA MADE AWARE THAT PT NEED A GURNEY TO GO HOME, PT IS TOTAL DEPENDANT ON HIS REPOSITIONING EVERY 2, AND IT WILL BE VERY DIFFICULT TO PUT PT ON A WHEELCHAIR TO FAMILY CAR, ARIANNA INFORM ME THAT SHE WILL GOING TO LET HIS DAUGHTER KNOW AND SET TRANSPORTATION, PHONE EXTENSION GIVEN TO HER [id number], ALSO ARIANNA MADE AWARE THAT HE NEED A SPECIAL BED IN ORDER PT NOT DEVELOPING PRESSURE SORE, ARIANNA INFORM ME THAT PATIENT'S DAUGHTER DID REFUSED ?
--- NOTE | 2019-05-19 16:15 | NUR ---
WOUND CARE / WOUND PHOTO TAKEN TO RT HIP RT ISCHIUM LEFT LOWER LEG LEFT GREAT TOE LEFT 2ND TOE COCCYX AREA RT BUTTOCK ALL FILLED ON THE WOUND PHOTO FORM
--- NOTE | 2019-05-19 16:50 | NUR ---
JOEY FROM [facility] CALLED AND INFORM ME THAT THE TRANSPORTATION WILL BE HERE BY 1929
--- NOTE | 2019-05-19 18:48 | NUR ---
PT CONTINUE STABLE, CONTINUE MONITORING
--- NOTE | 2019-05-19 19:30 | NUR ---
Opening Shift Note Assumed care of patient, awake and alert. No S/S of distress/SOB or pain. Instructed on POC and to call for assist PRN, will continue to monitor for changes Q1hr and PRN. Patient had just finished eating dinner with LGSW assistance. Tolerated the food well. Bland draining to gravity. Informed the patient that he is going home tonight.
--- NOTE | 2019-05-19 21:34 | NUR ---
Medical transportation came with a wheelchair. Had to call Hospice that we need a gurney to transport patient. Nurse Petra said they will come back to transport the patient with a gurney. Addendum: 05/19/19 at 2305 by GERARDO MELTON RN RN Actual time 1950 not 214
--- NOTE | 2019-05-19 21:40 | NUR ---
Medical transport came back with a gurney and three transporters. I called hospice to verify if the valverde should be removed or left. Nurse Petra said to keep valverde. Patient's last blood sugar check was 138, adminsters 2 units of insulin.
--- NOTE | 2019-05-19 22:00 | NUR ---
Patient official off the unit. Transported in a gurney with three transporters. IV's and tele box were removed. No signs of SOB or pain. Patient happy to know he is going home. Signed paperwork and put personal belongings is bag.
== END 2019-05-19 22:00 | disposition hospice, home (50) | DRG 70 ==
LOC: ER 10:47 → EDBD 10:47 → TELE 10:48 → TELE-EAST 17:24
PROVIDERS: ADMIT Nurse Practitioner Acute Care; ATTEND Internal Medicine
DX: G93.41 Metabolic encephalopathy (principal); L89.213 Pressure ulcer of right hip, stage 3; L89.153 Pressure ulcer of sacral region, stage 3; L89.313 Pressure ulcer of right buttock, stage 3; N17.0 Acute kidney failure with tubular necrosis; E44.0 Moderate protein-calorie malnutrition; I50.32 Chronic diastolic (congestive) heart failure; I48.19 Other persistent atrial fibrillation; D68.59 Other primary thrombophilia; E87.0 Hyperosmolality and hypernatremia; N39.0 Urinary tract infection, site not specified; I13.0 Hypertensive heart and chronic kidney disease with heart failure and stage 1 through stage 4 chronic kidney disease, or unspecified chronic kidney disease; I48.92 Unspecified atrial flutter; G91.2 (Idiopathic) normal pressure hydrocephalus; E87.2 Acidosis; R62.7 Adult failure to thrive; N18.3 Chronic kidney disease, stage 3 (moderate); E11.22 Type 2 diabetes mellitus with diabetic chronic kidney disease; E86.0 Dehydration; E11.42 Type 2 diabetes mellitus with diabetic polyneuropathy; Z66 Do not resuscitate; L89.890 Pressure ulcer of other site, unstageable; D63.8 Anemia in other chronic diseases classified elsewhere; E87.5 Hyperkalemia; E11.51 Type 2 diabetes mellitus with diabetic peripheral angiopathy without gangrene; I27.20 Pulmonary hypertension, unspecified; L89.90 Pressure ulcer of unspecified site, unspecified stage; Z68.20 Body mass index [BMI] 20.0-20.9, adult; Z74.01 Bed confinement status; Z79.84 Long term (current) use of oral hypoglycemic drugs; Z82.49 Family history of ischemic heart disease and other diseases of the circulatory system; Z83.3 Family history of diabetes mellitus; Z87.891 Personal history of nicotine dependence
CPT/HCPCS: 36415; 36600; 70450; 71045; 76775; 80048; 80053; 80320; 81001; 82607; 82746; 82805; 82962; 83036; 83605; 83735; 84439; 84443; 84484; 85025; 85610; 85730; 86592; 87086; 93005; 94644; 96361; 96365; 96375; G0378; J0610; J0696; J1815